=== PATIENT | female | born 1965 | race African-American/Black ===

== ENCOUNTER 2017-05-01 15:08 | Emergency (ER) | payer OTHER ==
[~2017-05-01] VITALS: Ht 162.6 cm; Wt 90.7 kg
[~2017-05-01 15:08] MED LIST: ACETAMINOPHEN-1 EAC1 ORAL; AZITHROMYCIN250 MG ORAL; BENADRYL50 MG ORAL; IBUPROFEN600 MG ORAL; METROGEL-VAGINA70 G1 VAGIN; NORCO 5-325 TA1 EACH ORAL
[2017-05-01 15:12] VITALS: BP 118/81
[2017-05-01 15:31] VITALS: BP 118/81
--- NOTE | 2017-05-01 15:39 | Emergency Room Report ---
History of Present Illness General Chief Complaint: Abdominal Pain Source: Patient, Medical Record Present Illness HPI 51YOF [employer] patient ambulated into ED with 2-3 days of "lump on my rib" States the "mass" comes and goes and associated with intermittent "gas" and change in bowel habits from constipation/mild watery diarrhea Currently denies abd pain, nausea/vomiting, diarrrhea, fever/chills Denies trauma Denies associated chest pain, SOB, fever/chills, cough, urinary complaints Multiple visits to ED for similar complaints of pain, chronic pain Alleges SCD. Documented opiod dependence and drug seeking behavior States "my doctor recently changed and I ran out of Lexa" and "I'm in between doctors." Allergies: Coded Allergies: KETOROLAC (Unverified Allergy, Severe, 09/27/15) HYDROMORPHONE (Verified Allergy, Mild, RASH, 08/28/10) AMOXICILLIN (Verified Allergy, Unknown, 04/15/09) CLINDAMYCIN (Verified Allergy, Unknown, 04/15/09) MORPHINE (Verified Allergy, Unknown, 04/15/09) SULFAMETHOXAZOLE (Verified Allergy, Unknown, 04/15/09) TRIMETHOPRIM (Verified Allergy, Unknown, 04/15/09) Patient History Past Medical History: other - ?sickle cell disease Past Surgical History: none Pertinent Family History: none Social History: Denies: smoking, alcohol use, drug use Now: No Immunizations: UTD Reviewed Nursing Documentation: PMH: Agreed, PSxH: Agreed Nursing Documentation-PMH Hx Diabetes: Yes Review of Systems All Other Systems: negative except mentioned in HPI Physical Exam Vital Signs Date Time Temp Pulse Resp B/P (MAP) Pulse Ox O2 Delivery O2 Flow Rate FiO2 05/01/17 15:12 97.5 76 20 118/81 100 Room Air Sp02 EP Interpretation: reviewed, normal General Appearance: normal inspection, well appearing, no apparent distress, alert, obese, other - Tearful, dramatoc Head: normocephalic, atraumatic Eyes: bilateral eye PERRL, bilateral eye EOMI ENT: normal ENT inspection, hearing grossly normal, normal voice Neck: normal inspection, full range of motion, supple, no bony tend Respiratory: normal inspection, lungs clear, normal breath sounds, no respiratory distress, no retraction, no wheezing, chest symmetrical, palpation of chest normal Cardiovascular #1: regular rate, rhythm, no edema Gastrointestinal: normal inspection, normal bowel sounds, non tender, soft, no mass, no guarding, no hernia, no pulsatile mass, no rebound, other - Exam done with RN Mandi bedside/chaperoning Genitourinary: no CVA tenderness Musculoskeletal: normal inspection, back normal, normal range of motion, Milo' s Sign negative Neurologic: normal inspection, alert, oriented x3, responsive, 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, motor strength/tone normal, cerebellar normal, normal gait, speech normal, other - Ambulating with walker Psychiatric: normal inspection, judgement/insight normal, mood/affect normal, other - Manipulative, histrionic Skin: normal inspection, normal color, no rash Lymphatic: normal inspection Medical Decision Making Diagnostic Impression: Primary Impression: Opiate dependence Qualified Codes: F11.20 - Opioid dependence, uncomplicated Additional Impressions: Drug-seeking behavior Rib pain on right side ER Course C/o right rib "lump." No palpable deformity to right rib cage/chest wall No appreciated "lump". No paradoxical rib movement Non-focal abdomen When I told patient I didnt appreciate a mass, and possibly its related to gas given her self-reported frequent change of bowel habits from constipation to watery diarrhea, I was concerned with exacerbating slowed colonic transit with additional narcotics. Per Dr Mccarthy's note, patient got toradol X2 under direct observation previous ED visit - patient denied this. Refused Toradol here. I offered tylenol - for which she does have a listed/known allergy - and patient refused, endorsing "almost dying" from tylenol previously. When told she would not get narcotics here, patient gathered her belongings and ambulated out of ED cursing me out, using profane language, threatening me patient repeatedly endorsing that "the doctor didnt listen to me or examine me. " However RN Mandi was present for entirety of my HPI and physical exam and can attest for that being done. Vitals stable. Afebrile. No focal abd ttp. Highly suspicious for narcotic-seeking behavior Intermittent rib "lump" is not compatible with sickle cell disease painful crisis or acute chest syndrome Low suspicion for acute bacterial/surgical process requiring additional lab work , imaging, admission and/or surgical evaluation at this time given well appearing, non-focal abd on serial exam, stable vital signs, and tolerating PO. In shared decision making process with patient, understands to return to ER for worsening symptoms and to followup with PMD in reasonable amount of time, 2-3 days. patient did not want to sign discharge paperwork or wait for followup instructions Last Vital Signs Date Time Temp Pulse Resp B/P (MAP) Pulse Ox O2 Delivery O2 Flow Rate FiO2 05/01/17 15:12 97.5 76 20 118/81 100 Room Air Status: improved Disposition: HOME, SELF-CARE Condition: Improved Patient Instructions: Abdominal Pain, Adult STEVEN MONTERROSO M.D. May 01, 2017 15:39
== END 2017-05-01 15:31 | disposition home or self-care (01) ==
LOC: EMR 15:31
DX: F11.20 Opioid dependence, uncomplicated (principal); Z76.5 Malingerer [conscious simulation]; R07.81 Pleurodynia; E11.9 Type 2 diabetes mellitus without complications; Z88.2 Allergy status to sulfonamides; Z88.6 Allergy status to analgesic agent; Z88.8 Allergy status to other drugs, medicaments and biological substances
CPT/HCPCS: 99282